=== PATIENT | female | born 1950 | race Caucasian/White ===

== ENCOUNTER → 2017-09-09 | Outpatient (CLI) | payer OTHER ==
[~2017-09-09] MED LIST: COMPAZINE10 MG PO; DESYREL150 MG PO; DIABETA 5MG TABL5 MG PO; EFFEXOR100 MG PO; GLUCOPHAGE1000 MG PO; GLUCOTROL5 MG PO; IBUPROFEN 600600 M1 PO; KEFLEX500 MG PO; MAGOX 400400 MG PO; NORCO 5-325 TA1 EACH PO; ONDANSETRON HCL4 M2 PO; TORADOL 10 MG T10 MG PO; VALIUM5 MG PO; VICODIN 5-5001 EACH PO; WELLBUTRIN XL150 MG PO; [UNRECOGNIZED DRUG - CODE] PO; [UNRECOGNIZED DRUG - OTHER]
== END ==
LOC: M.CT 09:01
DX: Z12.31 Encounter for screening mammogram for malignant neoplasm of breast (principal); J44.9 Chronic obstructive pulmonary disease, unspecified

== ENCOUNTER → 2018-08-21 | Outpatient (CLI) | payer OTHER | LOC: M.ULTRA 09:00 | DX: K80.20 Calculus of gallbladder without cholecystitis without obstruction (principal); K76.0 Fatty (change of) liver, not elsewhere classified; Z88.0 Allergy status to penicillin; Z88.2 Allergy status to sulfonamides ==